=== PATIENT | female | born 1965 ===

== ENCOUNTER 2023-06-08 11:52 | Emergency (ER) | payer MEDICARE, SELFPAY ==
[2023-06-08] VITALS (15 sets, daily range): BP systolic 146–201; BP diastolic 68–97; PULSE 62–88; RESP 15–22; TEMP 36.7; O2SAT 94–99; BMI 42.0
--- NOTE | 2023-06-08 12:02 | DI.RAD.S_ITS ---
PROCEDURE: XR KNEE LT 1TO2V INDICATIONS: knee pain, fall, radiates up leg. TECHNIQUE: 2 views of the knee were acquired. COMPARISON: None. FINDINGS: Bones: Knee arthroplasty has been performed. There is a comminuted moderately displaced and angulated fracture of the distal femur extending to the distal femoral arthroplasty hardware. Soft tissues: No joint effusion. No suspicious soft tissue calcifications. IMPRESSION: Periprosthetic distal femoral fracture. Dictated by: Octavia Farris M.D. on 06/08/2023 at 12:50 Approved by: Octavia Farris M.D. on 06/08/2023 at 12:51
--- NOTE | 2023-06-08 12:02 | DI.RAD.S_ITS ---
PROCEDURE: XR HIP W PEL IF DONE LT 2V INDICATIONS: knee pain, fall, radiates up leg. TECHNIQUE: AP pelvis with lateral view(s) of the left hip(s). COMPARISON: None. FINDINGS: Bones: No fractures or dislocations. Pelvic ring appears intact. No suspicious bony lesions. Lumbosacral fusion hardware. Soft tissues: The visualized bowel gas pattern is normal. No suspicious soft tissue calcifications. IMPRESSION: No acute fracture. No osseous lesion. If symptoms and/or clinical suspicion for pathology persist, further assessment with repeat, or advanced imaging (e.g., CT, MRI, or bone scan) may be helpful for further assessment. Dictated by: Octavia Farris M.D. on 06/08/2023 at 12:50 Approved by: Octavia Farris M.D. on 06/08/2023 at 12:50
--- NOTE | 2023-06-08 12:19 | PC.NURSE ---
Provider notified of patient condition and current pain rate and elevated blood pressure. Provider gave verbal order for 4mg of morphine IV.
[2023-06-08] MEDS: MORPHINE 4 MG/ML INJ IV ×6 (12:27→21:41)
--- NOTE | 2023-06-08 12:56 | ED.LOWEXIN ---
HPI - Extremity Injury (Lower) <Aline Gregory DO - Last Filed: 06/10/23 07:32> General Chief Complaint: Extremity Injury, Lower Stated Complaint: trip and fall. 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 Patient was at an estate sale today tripped and fell directly onto her left knee and has significant pain with swelling. No numbness or tingling. She can flex and point her foot. She states pain all seems to be localized there. She denies other injuries. States she did not hit her head no headache no neck pain, no chest pain or shortness of breath. No nausea or vomiting, no other GI or urinary symptoms. She denies any numbness or tingling down her leg. She states any sort of movement is very painful. She received fentanyl EN route with EMS which was moderately helpful, she received additional dose of morphine here which when she is still she states manages her pain. She was hypertensive upon arrival, she did take her losartan today. Patient states she got bad headaches with codeine but no other known drug allergies. She states her tetanus has been updated in the last year. Has had prior abdominal surgeries but denies any cardiac surgeries. Related Data Home Medications Medication Instructions Recorded Confirmed gabapentin 100 mg tablet 100 mg PO TID 06/09/23 06/09/23 losartan 100 mg tablet 100 mg PO DAILY 06/09/23 06/09/23 omeprazole 20 mg capsule,delayed 20 mg PO DAILY 06/09/23 06/09/23 release trazodone 100 mg tablet 100 mg PO BEDTIME 06/09/23 06/09/23 venlafaxine 75 mg tablet 75 mg PO TID 06/09/23 06/09/23 Allergies Allergy/AdvReac Type Severity Reaction Status Date / Time codeine AdvReac Headache Verified 06/09/23 03:34 Patient History <Aline Gregory DO - Last Filed: 06/10/23 07:32> Medical History (Updated 06/09/23 @ 10:37 by Bing Ball RN) High cholesterol Hypertension Social History Smoking Status: Never smoker Smoking Status: Never smoker alcohol intake frequency: a few times a week Substance Use Type: does not use Exam <Aline Gregory DO - Last Filed: 06/10/23 07:32> Initial Vital Signs Initial Vital Signs: Vital Signs Temperature 98.1 F 06/08/23 12:04 Pulse Rate 63 06/08/23 12:04 Respiratory Rate 16 06/08/23 12:04 Blood Pressure 201/97 H 06/08/23 12:04 Pulse Oximetry 99 06/08/23 12:04 Oxygen Delivery Method Room Air 06/08/23 12:04 <Fredis Walsh DO - Last Filed: 06/09/23 22:55> Initial Vital Signs Initial Vital Signs: Vital Signs Temperature 98.1 F 06/08/23 12:04 Pulse Rate 63 06/08/23 12:04 Respiratory Rate 16 06/08/23 12:04 Blood Pressure 201/97 H 06/08/23 12:04 Pulse Oximetry 99 06/08/23 12:04 Oxygen Delivery Method Room Air 06/08/23 12:04 <Darian Daly MD - Last Filed: 06/22/23 08:24> Initial Vital Signs Initial Vital Signs: Vital Signs Temperature 98.1 F 06/08/23 12:04 Pulse Rate 63 06/08/23 12:04 Respiratory Rate 16 06/08/23 12:04 Blood Pressure 201/97 H 06/08/23 12:04 Pulse Oximetry 99 06/08/23 12:04 Oxygen Delivery Method Room Air 06/08/23 12:04 Course <Aline Gregory DO - Last Filed: 06/10/23 07:32> Orders Ordered: Discontinued Medications Gabapentin (Gabapentin 100 Mg Capsule) 100 mg PO TID [facility] Last Admin: 06/09/23 15:55 Dose: 100 mg Documented By: LUIS FELIPE Admin: 06/09/23 09:39 Dose: 100 mg Documented By: Admin: 06/08/23 23:13 Dose: 100 mg Documented By: BEATRIZ Sodium Chloride (Normal Saline 0.9%) 1,000 mls @ 125 mls/hr IV CONT [facility] Last Admin: 06/09/23 11:02 Dose: 125 mls/hr Documented By: Infusion: 06/09/23 11:01 Dose: 0 mls/hr Documented By: Admin: 06/09/23 02:05 Dose: 125 mls/hr Documented By: Infusion: 06/09/23 02:05 Dose: 125 mls/hr Documented By: Admin: 06/08/23 18:20 Dose: 125 mls/hr Documented By: MIAH Losartan Potassium (Losartan 50 Mg Tablet) 100 mg PO NOW [facility] Losartan Potassium (Losartan 50 Mg Tablet) 100 mg PO NOW ONE Stop: 06/09/23 09:01 Last Admin: 06/09/23 09:38 Dose: 100 mg Documented By: ARLENE Morphine Sulfate (Morphine 4 Mg/Ml Inj) 4 mg IV NOW ONE Stop: 06/08/23 12:21 Last Admin: 06/08/23 12:27 Dose: 4 mg Documented By: RB Morphine Sulfate (Morphine 4 Mg/Ml Inj) 4 mg IV NOW ONE Stop: 06/08/23 14:42 Last Admin: 06/08/23 14:54 Dose: 4 mg Documented By: RB Morphine Sulfate (Morphine 4 Mg/Ml Inj) 4 mg IV Q2HR PRN PRN Reason: pain Last Admin: 06/09/23 14:50 Dose: 4 mg Documented By: Admin: 06/09/23 12:44 Dose: 4 mg Documented By: Admin: 06/09/23 11:02 Dose: 4 mg Documented By: Admin: 06/09/23 08:40 Dose: 4 mg Documented By: Admin: 06/09/23 06:08 Dose: 4 mg Documented By: Admin: 06/09/23 03:57 Dose: 4 mg Documented By: Admin: 06/09/23 01:28 Dose: 4 mg Documented By: Admin: 06/08/23 21:41 Dose: 4 mg Documented By: Admin: 06/08/23 19:37 Dose: 4 mg Documented By: Admin: 06/08/23 17:24 Dose: 4 mg Documented By: Admin: 06/08/23 15:48 Dose: 4 mg Documented By: MIAH Morphine Sulfate (Morphine 4 Mg/Ml Inj) 4 mg IM NOW ONE Stop: 06/09/23 15:56 Last Admin: 06/09/23 16:09 Dose: 4 mg Documented By: ARLENE Naloxone HCl (Naloxone 0.4 Mg/Ml Vial) 0.2 mg IV Q2MIN PRN PRN Reason: Opiate Reversal Trazodone HCl (Trazodone 50 Mg Tablet) 100 mg PO BEDTIME [facility] Last Admin: 06/08/23 23:12 Dose: 100 mg Documented By: BEATRIZ Venlafaxine HCl (Venlafaxine 37.5 Mg Tablet) 75 mg PO TID [facility] Last Admin: 06/09/23 15:55 Dose: 75 mg Documented By: LUIS FELIPE Admin: 06/09/23 09:38 Dose: 75 mg Documented By: Admin: 06/08/23 23:12 Dose: 75 mg Documented By: BEATRIZ Vital Signs Vital signs: Vital Signs - 8 hr 06/09/23 10:25 Pulse Rate 73 Respiratory Rate 18 Blood Pressure 155/70 H Pulse Oximetry 94 Oxygen Delivery Method Room Air <Fredis Walsh DO - Last Filed: 06/09/23 22:55> Orders Ordered: Discontinued Medications Gabapentin (Gabapentin 100 Mg Capsule) 100 mg PO TID [facility] Last Admin: 06/09/23 15:55 Dose: 100 mg Documented By: LUIS FELIPE Admin: 06/09/23 09:39 Dose: 100 mg Documented By: Admin: 06/08/23 23:13 Dose: 100 mg Documented By: BEATRIZ Sodium Chloride (Normal Saline 0.9%) 1,000 mls @ 125 mls/hr IV CONT [facility] Last Admin: 06/09/23 11:02 Dose: 125 mls/hr Documented By: Infusion: 06/09/23 11:01 Dose: 0 mls/hr Documented By: Admin: 06/09/23 02:05 Dose: 125 mls/hr Documented By: Infusion: 06/09/23 02:05 Dose: 125 mls/hr Documented By: Admin: 06/08/23 18:20 Dose: 125 mls/hr Documented By: MIAH Losartan Potassium (Losartan 50 Mg Tablet) 100 mg PO NOW [facility] Losartan Potassium (Losartan 50 Mg Tablet) 100 mg PO NOW ONE Stop: 06/09/23 09:01 Last Admin: 06/09/23 09:38 Dose: 100 mg Documented By: ARLENE Morphine Sulfate (Morphine 4 Mg/Ml Inj) 4 mg IV NOW ONE Stop: 06/08/23 12:21 Last Admin: 06/08/23 12:27 Dose: 4 mg Documented By: JESUS Morphine Sulfate (Morphine 4 Mg/Ml Inj) 4 mg IV NOW ONE Stop: 06/08/23 14:42 Last Admin: 06/08/23 14:54 Dose: 4 mg Documented By: RB Morphine Sulfate (Morphine 4 Mg/Ml Inj) 4 mg IV Q2HR PRN PRN Reason: pain Last Admin: 06/09/23 14:50 Dose: 4 mg Documented By: Admin: 06/09/23 12:44 Dose: 4 mg Documented By: Admin: 06/09/23 11:02 Dose: 4 mg Documented By: Admin: 06/09/23 08:40 Dose: 4 mg Documented By: Admin: 06/09/23 06:08 Dose: 4 mg Documented By: Admin: 06/09/23 03:57 Dose: 4 mg Documented By: Admin: 06/09/23 01:28 Dose: 4 mg Documented By: Admin: 06/08/23 21:41 Dose: 4 mg Documented By: Admin: 06/08/23 19:37 Dose: 4 mg Documented By: Admin: 06/08/23 17:24 Dose: 4 mg Documented By: Admin: 06/08/23 15:48 Dose: 4 mg Documented By: MIAH Morphine Sulfate (Morphine 4 Mg/Ml Inj) 4 mg IM NOW ONE Stop: 06/09/23 15:56 Last Admin: 06/09/23 16:09 Dose: 4 mg Documented By: ARLENE Naloxone HCl (Naloxone 0.4 Mg/Ml Vial) 0.2 mg IV Q2MIN PRN PRN Reason: Opiate Reversal Trazodone HCl (Trazodone 50 Mg Tablet) 100 mg PO BEDTIME [facility] Last Admin: 06/08/23 23:12 Dose: 100 mg Documented By: BEATRIZ Venlafaxine HCl (Venlafaxine 37.5 Mg Tablet) 75 mg PO TID [facility] Last Admin: 06/09/23 15:55 Dose: 75 mg Documented By: Admin: 06/09/23 09:38 Dose: 75 mg Documented By: Admin: 06/08/23 23:12 Dose: 75 mg Documented By: BEATRIZ Vital Signs Vital signs: Vital Signs - 8 hr 06/09/23 10:25 Pulse Rate 73 Respiratory Rate 18 Blood Pressure 155/70 H Pulse Oximetry 94 Oxygen Delivery Method Room Air <Darian Daly MD - Last Filed: 06/22/23 08:24> Orders Ordered: Discontinued Medications Gabapentin (Gabapentin 100 Mg Capsule) 100 mg PO TID [facility] Last Admin: 06/09/23 15:55 Dose: 100 mg Documented By: LUIS FELIPE Admin: 06/09/23 09:39 Dose: 100 mg Documented By: Admin: 06/08/23 23:13 Dose: 100 mg Documented By: BEATRIZ Sodium Chloride (Normal Saline 0.9%) 1,000 mls @ 125 mls/hr IV CONT [facility] Last Admin: 06/09/23 11:02 Dose: 125 mls/hr Documented By: Infusion: 06/09/23 11:01 Dose: 0 mls/hr Documented By: Admin: 06/09/23 02:05 Dose: 125 mls/hr Documented By: Infusion: 06/09/23 02:05 Dose: 125 mls/hr Documented By: Admin: 06/08/23 18:20 Dose: 125 mls/hr Documented By: MIAH Losartan Potassium (Losartan 50 Mg Tablet) 100 mg PO NOW [place] Losartan Potassium (Losartan 50 Mg Tablet) 100 mg PO NOW ONE Stop: 06/09/23 09:01 Last Admin: 06/09/23 09:38 Dose: 100 mg Documented By: ARLENE Morphine Sulfate (Morphine 4 Mg/Ml Inj) 4 mg IV NOW ONE Stop: 06/08/23 12:21 Last Admin: 06/08/23 12:27 Dose: 4 mg Documented By: RB Morphine Sulfate (Morphine 4 Mg/Ml Inj) 4 mg IV NOW ONE Stop: 06/08/23 14:42 Last Admin: 06/08/23 14:54 Dose: 4 mg Documented By: RB Morphine Sulfate (Morphine 4 Mg/Ml Inj) 4 mg IV Q2HR PRN PRN Reason: pain Last Admin: 06/09/23 14:50 Dose: 4 mg Documented By: Admin: 06/09/23 12:44 Dose: 4 mg Documented By: Admin: 06/09/23 11:02 Dose: 4 mg Documented By: Admin: 06/09/23 08:40 Dose: 4 mg Documented By: Admin: 06/09/23 06:08 Dose: 4 mg Documented By: Admin: 06/09/23 03:57 Dose: 4 mg Documented By: Admin: 06/09/23 01:28 Dose: 4 mg Documented By: Admin: 06/08/23 21:41 Dose: 4 mg Documented By: Admin: 06/08/23 19:37 Dose: 4 mg Documented By: Admin: 06/08/23 17:24 Dose: 4 mg Documented By: Admin: 06/08/23 15:48 Dose: 4 mg Documented By: MIAH Morphine Sulfate (Morphine 4 Mg/Ml Inj) 4 mg IM NOW ONE Stop: 06/09/23 15:56 Last Admin: 06/09/23 16:09 Dose: 4 mg Documented By: ARLENE Naloxone HCl (Naloxone 0.4 Mg/Ml Vial) 0.2 mg IV Q2MIN PRN PRN Reason: Opiate Reversal Trazodone HCl (Trazodone 50 Mg Tablet) 100 mg PO BEDTIME [facility] Last Admin: 06/08/23 23:12 Dose: 100 mg Documented By: BEATRIZ Venlafaxine HCl (Venlafaxine 37.5 Mg Tablet) 75 mg PO TID [facility] Last Admin: 06/09/23 15:55 Dose: 75 mg Documented By: LUIS FELIPE Admin: 06/09/23 09:38 Dose: 75 mg Documented By: Admin: 06/08/23 23:12 Dose: 75 mg Documented By: BEATRIZ Vital Signs Vital signs: Vital Signs - 8 hr 06/09/23 10:25 Pulse Rate 73 Respiratory Rate 18 Blood Pressure 155/70 H Pulse Oximetry 94 Oxygen Delivery Method Room Air MDM - Extremity Injury (Lower) <Aline Gregory, DO - Last Filed: 06/10/23 07:32> Lab Data 06/08/23 13:55 06/08/23 13:55 Labs: Lab Results 06/08/23 06/08/23 06/08/23 Range/Units 13:45 13:55 13:55 WBC 11.3 H (4.5-11.0) X10^3/uL RBC 4.30 (4.0-5.2) X10^6/uL Hgb 10.4 L (12.0-16.0) g/dL Hct 31.4 L (36-46) % MCV 73.0 L (80-100) fL MCH 24.1 L (26-34) PG MCHC 33.0 (30-36) % RDW 17.7 H (11.6-14.8) % Plt Count 302 (150-400) X10^3/uL Neut % (Auto) 89.3 H (50-75) % Lymph % (Auto) 7.7 L (25-40) % [place] % (Auto) 2.5 L (3-14) % Eos % (Auto) 0.3 L (2-4) % Baso % (Auto) 0.2 (0-2) % Neut # (Auto) 97644 H (3216-1621) /uL Lymph # (Auto) 900 L (9643-8493) /uL [place] # (Auto) 300 (0-900) /uL Eos # (Auto) 0 (0-450) /uL Baso # (Auto) 0 (0-100) /uL PT 14.4 H (10.1-12.7) SECONDS INR 1.3 (0.9-1.3) APTT 27 (26-36) SECONDS Sodium (137-145) mmol/L Potassium (3.4-5.1) mmol/L Chloride (98-107) mmol/L Carbon Dioxide (22-32) mmol/L BUN (7-17) mg/dL Creatinine (0.52-1.04) mg/dL Estimated GFR (>60) mL/min BUN/Creatinine Ratio (6-22) Glucose (70-100) mg/dL Calcium (8.4-10.2) mg/dL Total Bilirubin (0.2-1.3) mg/dL AST (14-36) IU/L ALT (<35) IU/L Alkaline Phosphatase (38-126) U/L Total Protein (6.3-8.2) g/dL Albumin (3.5-5.0) g/dL Globulin (1.7-4.1) g/dL Albumin/Globulin Ratio (1.0-2.8) SARS-CoV-2 (PCR) Negative (Negative) 06/08/23 Range/Units 13:55 WBC (4.5-11.0) X10^3/uL RBC (4.0-5.2) X10^6/uL Hgb (12.0-16.0) g/dL Hct (36-46) % MCV (80-100) fL MCH (26-34) PG MCHC (30-36) % RDW (11.6-14.8) % Plt Count (150-400) X10^3/uL Neut % (Auto) (50-75) % Lymph % (Auto) (25-40) % [place] % (Auto) (3-14) % Eos % (Auto) (2-4) % Baso % (Auto) (0-2) % Neut # (Auto) (2946-7214) /uL Lymph # (Auto) (5024-3047) /uL [place] # (Auto) (0-900) /uL Eos # (Auto) (0-450) /uL Baso # (Auto) (0-100) /uL PT (10.1-12.7) SECONDS INR (0.9-1.3) APTT (26-36) SECONDS Sodium 138 (137-145) mmol/L Potassium 3.9 (3.4-5.1) mmol/L Chloride 104 (98-107) mmol/L Carbon Dioxide 27 (22-32) mmol/L BUN 10 (7-17) mg/dL Creatinine 0.56 (0.52-1.04) mg/dL Estimated GFR > 60 (>60) mL/min BUN/Creatinine Ratio 17.9 (6-22) Glucose 168 H (70-100) mg/dL Calcium 8.3 L (8.4-10.2) mg/dL Total Bilirubin 0.4 (0.2-1.3) mg/dL AST 28 (14-36) IU/L ALT 23 (<35) IU/L Alkaline Phosphatase 137 H (38-126) U/L Total Protein 7.1 (6.3-8.2) g/dL Albumin 3.9 (3.5-5.0) g/dL Globulin 3.2 (1.7-4.1) g/dL Albumin/Globulin Ratio 1.2 (1.0-2.8) SARS-CoV-2 (PCR) (Negative) Imaging Data CT LE : Radiologist's Impression: [address] [address] [address] Scan Report Signed Patient: Felecia Gonzales MR#: [id number] : 1965 Acct:[id number] Age/Sex: 57 / F Date of Service: 06/08/23 Loc: ED Accession Number: [id number] ?? Procedure: CT LE LT wo con Ordering Provider: Aline Gregory D.O. PROCEDURE:? CT LE LT W CON ? INDICATIONS:? left fx, periprosthetic ? TECHNIQUE:? Noncontrast 1-1.5 mm axial sections acquired from the mid-patella to the proximal tibia, with coronal and sagittal reformats.? ? COMPARISON:? [facility], CR, XR KNEE LT 1TO2V, 06/08/2023, 12:14. ? FINDINGS:? Image quality:? Degraded by metallic artifact. ? Bones:? Knee arthroplasty has been performed.? As before, there is a moderately displaced and comminuted fracture of the distal femur adjacent to the knee arthroplasty hardware. ? Soft tissues:? No fluid collections. ? ? IMPRESSION:? Periprosthetic distal femoral fracture. ? Dictated by: Octavia Farris M.D. on 06/08/2023 at 16:42 ? ? Approved by: Octavia Farris M.D. on 06/08/2023 at 16:44?? MDM Narrative Medical decision making narrative: 57-year-old female who presents with complaint of fall with significant knee pain does radiate a little bit towards the hip. Hip x-ray is negative knee x-ray shows periprosthetic joint with fracture just above comminuted somewhat angulated. Patient is neurovascularly intact. Discussed with Orthopedic surgery is outside their scope here locally so they do recommend transfer. Patient denies any other injury states she went directly onto her knee. She is not anticoagulated. Spoke with Dr. Edison Allison. Orthopedic surgery did review patient's imaging. They asked for CT lower extremity without contrast for surgical planning this will help delineate which facility patient goes to and asked her images to be push once that is accomplished. They do plan for patient to transfer just need additional information for planning. Awaiting callback from orthopedic surgery. They have had technical issues uploading films. Films confirmed uploaded at [facility]. Orthopedics recontactaed, awaiting final back. Signed out to Dr. Walsh while awaiting final callback. Patient has been NVI. PRN morphine for pain control. <Fredis Walsh, DO - Last Filed: 06/09/23 22:55> Lab Data Labs: Lab Results 06/08/23 06/08/23 06/08/23 Range/Units 13:45 13:55 13:55 WBC 11.3 H (4.5-11.0) X10^3/uL RBC 4.30 (4.0-5.2) X10^6/uL Hgb 10.4 L (12.0-16.0) g/dL Hct 31.4 L (36-46) % MCV 73.0 L (80-100) fL MCH 24.1 L (26-34) PG MCHC 33.0 (30-36) % RDW 17.7 H (11.6-14.8) % Plt Count 302 (150-400) X10^3/uL Neut % (Auto) 89.3 H (50-75) % Lymph % (Auto) 7.7 L (25-40) % [place] % (Auto) 2.5 L (3-14) % Eos % (Auto) 0.3 L (2-4) % Baso % (Auto) 0.2 (0-2) % Neut # (Auto) 09575 H (6188-6005) /uL Lymph # (Auto) 900 L (1867-5720) /uL [place] # (Auto) 300 (0-900) /uL Eos # (Auto) 0 (0-450) /uL Baso # (Auto) 0 (0-100) /uL PT 14.4 H (10.1-12.7) SECONDS INR 1.3 (0.9-1.3) APTT 27 (26-36) SECONDS Sodium (137-145) mmol/L Potassium (3.4-5.1) mmol/L Chloride (98-107) mmol/L Carbon Dioxide (22-32) mmol/L BUN (7-17) mg/dL Creatinine (0.52-1.04) mg/dL Estimated GFR (>60) mL/min BUN/Creatinine Ratio (6-22) Glucose (70-100) mg/dL Calcium (8.4-10.2) mg/dL Total Bilirubin (0.2-1.3) mg/dL AST (14-36) IU/L ALT (<35) IU/L Alkaline Phosphatase (38-126) U/L Total Protein (6.3-8.2) g/dL Albumin (3.5-5.0) g/dL Globulin (1.7-4.1) g/dL Albumin/Globulin Ratio (1.0-2.8) SARS-CoV-2 (PCR) Negative (Negative) 06/08/23 Range/Units 13:55 WBC (4.5-11.0) X10^3/uL RBC (4.0-5.2) X10^6/uL Hgb (12.0-16.0) g/dL Hct (36-46) % MCV (80-100) fL MCH (26-34) PG MCHC (30-36) % RDW (11.6-14.8) % Plt Count (150-400) X10^3/uL Neut % (Auto) (50-75) % Lymph % (Auto) (25-40) % [place] % (Auto) (3-14) % Eos % (Auto) (2-4) % Baso % (Auto) (0-2) % Neut # (Auto) (4526-6436) /uL Lymph # (Auto) (6667-3349) /uL [place] # (Auto) (0-900) /uL Eos # (Auto) (0-450) /uL Baso # (Auto) (0-100) /uL PT (10.1-12.7) SECONDS INR (0.9-1.3) APTT (26-36) SECONDS Sodium 138 (137-145) mmol/L Potassium 3.9 (3.4-5.1) mmol/L Chloride 104 (98-107) mmol/L Carbon Dioxide 27 (22-32) mmol/L BUN 10 (7-17) mg/dL Creatinine 0.56 (0.52-1.04) mg/dL Estimated GFR > 60 (>60) mL/min BUN/Creatinine Ratio 17.9 (6-22) Glucose 168 H (70-100) mg/dL Calcium 8.3 L (8.4-10.2) mg/dL Total Bilirubin 0.4 (0.2-1.3) mg/dL AST 28 (14-36) IU/L ALT 23 (<35) IU/L Alkaline Phosphatase 137 H (38-126) U/L Total Protein 7.1 (6.3-8.2) g/dL Albumin 3.9 (3.5-5.0) g/dL Globulin 3.2 (1.7-4.1) g/dL Albumin/Globulin Ratio 1.2 (1.0-2.8) SARS-CoV-2 (PCR) (Negative) MDM Narrative Medical decision making narrative: 57-year-old female who presents with complaint of fall with significant knee pain does radiate a little bit towards the hip. Hip x-ray is negative knee x-ray shows periprosthetic joint with fracture just above comminuted somewhat angulated. Patient is neurovascularly intact. Discussed with Orthopedic surgery is outside their scope here locally so they do recommend transfer. Patient denies any other injury states she went directly onto her knee. She is not anticoagulated. Spoke with [facility], Dr. Hogan. Orthopedic surgery did review patient's imaging. They asked for CT lower extremity without contrast for surgical planning this will help delineate which facility patient goes to and asked her images to be push once that is accomplished. They do plan for patient to transfer just need additional information for planning. Awaiting callback from orthopedic surgery. They have had technical issues uploading films. Films confirmed uploaded at [facility]. Orthopedics recontactaed, awaiting final back. Signed out to Dr. Walsh while awaiting final callback. Patient has been NVI. PRN morphine for pain control. Dr walsh: Received turned over. Review patient's history and physical and workup up to this point. I did discuss the case with Dr. King on-call for Orthopedic surgery at [facility]. He did review the CT scan. He stated that this patient would be best off treated with the prosthetic orthopedic surgery group at the [facility] not by the Trauma group at [facility]. The transfer center was working on getting in touch with the appropriate group at the [facility]. I received a call back stating that this group not be available until after 0700 hours tomorrow morning. We attempted to contact other facilities that could potentially help the patient however there is no bed availability. Patient will stay in the emergency department this evening. She has pain medication ordered as needed. Plan will be is to Re contact transfer center in the morning with anticipation of transfer. Care turned over to day provider changes shift to continue with this process. <Darian Daly MD - Last Filed: 06/22/23 08:24> Lab Data Labs: Lab Results 06/08/23 06/08/23 06/08/23 Range/Units 13:45 13:55 13:55 WBC 11.3 H (4.5-11.0) X10^3/uL RBC 4.30 (4.0-5.2) X10^6/uL Hgb 10.4 L (12.0-16.0) g/dL Hct 31.4 L (36-46) % MCV 73.0 L (80-100) fL MCH 24.1 L (26-34) PG MCHC 33.0 (30-36) % RDW 17.7 H (11.6-14.8) % Plt Count 302 (150-400) X10^3/uL Neut % (Auto) 89.3 H (50-75) % Lymph % (Auto) 7.7 L (25-40) % [place] % (Auto) 2.5 L (3-14) % Eos % (Auto) 0.3 L (2-4) % Baso % (Auto) 0.2 (0-2) % Neut # (Auto) 05726 H (8657-9764) /uL Lymph # (Auto) 900 L (2252-4400) /uL [place] # (Auto) 300 (0-900) /uL Eos # (Auto) 0 (0-450) /uL Baso # (Auto) 0 (0-100) /uL PT 14.4 H (10.1-12.7) SECONDS INR 1.3 (0.9-1.3) APTT 27 (26-36) SECONDS Sodium (137-145) mmol/L Potassium (3.4-5.1) mmol/L Chloride (98-107) mmol/L Carbon Dioxide (22-32) mmol/L BUN (7-17) mg/dL Creatinine (0.52-1.04) mg/dL Estimated GFR (>60) mL/min BUN/Creatinine Ratio (6-22) Glucose (70-100) mg/dL Calcium (8.4-10.2) mg/dL Total Bilirubin (0.2-1.3) mg/dL AST (14-36) IU/L ALT (<35) IU/L Alkaline Phosphatase (38-126) U/L Total Protein (6.3-8.2) g/dL Albumin (3.5-5.0) g/dL Globulin (1.7-4.1) g/dL Albumin/Globulin Ratio (1.0-2.8) SARS-CoV-2 (PCR) Negative (Negative) 06/08/23 Range/Units 13:55 WBC (4.5-11.0) X10^3/uL RBC (4.0-5.2) X10^6/uL Hgb (12.0-16.0) g/dL Hct (36-46) % MCV (80-100) fL MCH (26-34) PG MCHC (30-36) % RDW (11.6-14.8) % Plt Count (150-400) X10^3/uL Neut % (Auto) (50-75) % Lymph % (Auto) (25-40) % [place] % (Auto) (3-14) % Eos % (Auto) (2-4) % Baso % (Auto) (0-2) % Neut # (Auto) (5724-4206) /uL Lymph # (Auto) (6688-5910) /uL [place] # (Auto) (0-900) /uL Eos # (Auto) (0-450) /uL Baso # (Auto) (0-100) /uL PT (10.1-12.7) SECONDS INR (0.9-1.3) APTT (26-36) SECONDS Sodium 138 (137-145) mmol/L Potassium 3.9 (3.4-5.1) mmol/L Chloride 104 (98-107) mmol/L Carbon Dioxide 27 (22-32) mmol/L BUN 10 (7-17) mg/dL Creatinine 0.56 (0.52-1.04) mg/dL Estimated GFR > 60 (>60) mL/min BUN/Creatinine Ratio 17.9 (6-22) Glucose 168 H (70-100) mg/dL Calcium 8.3 L (8.4-10.2) mg/dL Total Bilirubin 0.4 (0.2-1.3) mg/dL AST 28 (14-36) IU/L ALT 23 (<35) IU/L Alkaline Phosphatase 137 H (38-126) U/L Total Protein 7.1 (6.3-8.2) g/dL Albumin 3.9 (3.5-5.0) g/dL Globulin 3.2 (1.7-4.1) g/dL Albumin/Globulin Ratio 1.2 (1.0-2.8) SARS-CoV-2 (PCR) (Negative) MDM Narrative Medical decision making narrative: 57-year-old female who presents with complaint of fall with significant knee pain does radiate a little bit towards the hip. Hip x-ray is negative knee x-ray shows periprosthetic joint with fracture just above comminuted somewhat angulated. Patient is neurovascularly intact. Discussed with Orthopedic surgery is outside their scope here locally so they do recommend transfer. Patient denies any other injury states she went directly onto her knee. She is not anticoagulated. Spoke with [facility], Dr. Hogan. Orthopedic surgery did review patient's imaging. They asked for CT lower extremity without contrast for surgical planning this will help delineate which facility patient goes to and asked her images to be push once that is accomplished. They do plan for patient to transfer just need additional information for planning. Awaiting callback from orthopedic surgery. They have had technical issues uploading films. Films confirmed uploaded at [facility] [place]. Orthopedics recontactaed, awaiting final back. Signed out to Dr. aWlsh while awaiting final callback. Patient has been NVI. PRN morphine for pain control. Dr walsh: Received turned over. Review patient's history and physical and workup up to this point. I did discuss the case with Dr. King on-call for Orthopedic surgery at [facility]. He did review the CT scan. He stated that this patient would be best off treated with the prosthetic orthopedic surgery group at the [facility] not by the Trauma group at [facility]. The transfer center was working on getting in touch with the appropriate group at the [facility]. I received a call back stating that this group not be available until after 0700 hours tomorrow morning. We attempted to contact other facilities that could potentially help the patient however there is no bed availability. Patient will stay in the emergency department this evening. She has pain medication ordered as needed. Plan will be is to Re contact transfer center in the morning with anticipation of transfer. Care turned over to day provider changes shift to continue with this process. Dr. Daly: June 09, 2023 at 7:00 a.m. Sign-out from Dr. Walsh, awaiting call back from [facility] for specialty orthopedics with prosthesis provider to review patient's needs and for transfer. 10:37 a.m. spoke with [facility], , dr sommer, he will call back again, he needs to review with the specialty surgeons regarding this case and if available this weekend 11:14 a.m.. Spoke with orthopedics again [facility], he will accept patient. Awaiting for bed assignment now. Keep patient NPO 1:00 p.m.. Spoke with [facility] Dr. Parish, he will accept patient. They are awaiting for bed available Discharge Plan Departure Patient Disposition: [facility] Clinical Impression: Periprosthetic fracture around internal prosthetic joint, Femoral fracture Prescriptions: No Action venlafaxine 75 mg Tablet 75 mg PO TID trazodone [Desyrel] 100 mg Tablet 100 mg PO BEDTIME gabapentin 100 mg Tablet 100 mg PO TID omeprazole [Prilosec] 20 mg Capsule,Delayed Release(Dr/Ec) 20 mg PO DAILY losartan 100 mg Tablet 100 mg PO DAILY
[2023-06-08 14:11] LABS: Add Manual Diff / Slide Review NO; Basophils Absolute Auto 0 /uL (0-100); Basophils Percent Auto 0.2 % (0-2); Eosinophils Absolute Auto 0 /uL (0-450); Eosinophils Percent Auto 0.3 % (2-4); Hematocrit 31.4 % (36-46); Hemoglobin 10.4 g/dL (12.0-16.0); Lymphocytes Absolute Auto 900 /uL (1100-4500); Lymphocytes Percent Auto 7.7 % (25-40); Mean Corpuscular Hemoglobin 24.1 PG (26-34); Monocytes Absolute Auto 300 /uL (0-900); Monocytes Percent Auto 2.5 % (3-14); Neutrophils Absolute Auto 10100 /uL (1500-7000); Neutrophils Percent Auto 89.3 % (50-75); Platelet Count 302 X10^3/uL (150-400); Red Cell Distribution Width 17.7 % (11.6-14.8); White Blood Cell Count 11.3 X10^3/uL (4.5-11.0)
[2023-06-08 14:17] LABS: INR 1.3 (0.9-1.3); Prothrombin Time 14.4 SECONDS (10.1-12.7)
[2023-06-08 14:20] LABS: PTT Partial Thromboplastin Tim 27 SECONDS (26-36)
[2023-06-08 14:23] LABS: Alanine Aminotransferase 23 IU/L (<35); Albumin 3.9 g/dL (3.5-5.0); Albumin Globulin Ratio 1.2 (1.0-2.8); Alkaline Phosphatase 137 U/L (38-126); Aspartate Aminotransferase 28 IU/L (14-36); BUN Creatinine Ratio 17.9 (6-22); Bilirubin Total 0.4 mg/dL (0.2-1.3); Blood Urea Nitrogen 10 mg/dL (7-17); Calcium 8.3 mg/dL (8.4-10.2); Carbon Dioxide 27 mmol/L (22-32); Chloride 104 mmol/L (98-107); Estimated Glomerular Filt Rate > 60 mL/min (>60); Globulin 3.2 g/dL (1.7-4.1); Glucose 168 mg/dL (70-100); HEMOLYSIS < 15 (0-50); Potassium 3.9 mmol/L (3.4-5.1); Sodium 138 mmol/L (137-145); Total Protein 7.1 g/dL (6.3-8.2)
[2023-06-08 14:44] LABS: COVID19 -Nasal RAPID Negative (Negative)
--- NOTE | 2023-06-08 15:22 | DI.CT.S_ITS ---
PROCEDURE: CT LE LT W CON INDICATIONS: left fx, periprosthetic TECHNIQUE: Noncontrast 1-1.5 mm axial sections acquired from the mid-patella to the proximal tibia, with coronal and sagittal reformats. COMPARISON: [facility], CR, XR KNEE LT 1TO2V, 06/08/2023, 12:14. FINDINGS: Image quality: Degraded by metallic artifact. Bones: Knee arthroplasty has been performed. As before, there is a moderately displaced and comminuted fracture of the distal femur adjacent to the knee arthroplasty hardware. Soft tissues: No fluid collections. IMPRESSION: Periprosthetic distal femoral fracture. Dictated by: Octavia Farris M.D. on 06/08/2023 at 16:42 Approved by: Octavia Farris M.D. on 06/08/2023 at 16:44
--- NOTE | 2023-06-08 16:55 | PC.NURSE ---
PHLEBOTOMY DIRECTOR Note: Called [facility] to check in on pt's transfer status. CT has been pushed successfully but transfer center needs to call radiology to get CT into the pt's chart. Will follow up shortly.
[2023-06-08] MEDS: SODIUM CHLORIDE 0.9% 1,000 ML 125 ML IV (18:20)
[2023-06-08] MEDS: TRAZODONE 50 MG TABLET 100 MG PO (23:12)
[2023-06-08] MEDS: VENLAFAXINE 37.5 MG TABLET 75 MG PO (23:12)
[2023-06-08] MEDS: GABAPENTIN 100 MG CAPSULE PO (23:13)
[2023-06-09] VITALS (11 sets, daily range): BP systolic 132–175; BP diastolic 58–77; PULSE 71–80; RESP 16–18; O2SAT 92–96; BMI 42.0
[2023-06-09] MEDS: MORPHINE 4 MG/ML INJ IV ×7 (01:28→14:50)
[2023-06-09] MEDS: SODIUM CHLORIDE 0.9% 1,000 ML 125 ML IV ×2 (02:05→11:02)
--- NOTE | 2023-06-09 05:32 | PC.NURSE ---
SCD machine applied only on right leg. LLE injured, pt declines having on left leg.
--- NOTE | 2023-06-09 08:17 | PC.NURSE ---
Addendum entered by Portia Simpson CNA 06/09/23 08:30: This pt's transfer was turned over to the day [facility] [place]. The night [facility] [place], Urvashi Sampson, told me during report that she called out to other facilities to get the pt on their waiting lists, but all facilities she reached out to had no beds available. This REEL TENDER called out to transfer center around 0745 and inquired about what has halted the transfer process. Per xfer staff combat information center officer, there was a big miscommunication yesterday on having the pt's CT scan pushed appropriately into their medical charts on 's end, which impeded the xfer process. Currently, the xfer medical receptionist assistant Nathalie said there was no assigned doctor nor any progress from last nights calls at the moment. Original Note: REEL TENDER Note: Pt transfer process turned over to day shift [facility] [place]. Called and was told that they will call out to Dr. Alaniz, the on-call day orthopedic general surgeon to have a discussion with Dr. Daly. If no answer by 929, this REEL TENDER will recontact and put them on the [facility] list.
--- NOTE | 2023-06-09 08:45 | PC.NURSE ---
Attempted to call [facility], no answer. Will continue to call every couple of minutes.
--- NOTE | 2023-06-09 09:11 | CM.MNRNOTE ---
Pt placed on [facility]'s radar and will follow up throughout the day.
--- NOTE | 2023-06-09 09:29 | PC.NURSE ---
Pt now placed on [facility]'s radar and will follow up throughout the day.
[2023-06-09] MEDS: VENLAFAXINE 37.5 MG TABLET 75 MG PO ×2 (09:38→15:55)
[2023-06-09] MEDS: LOSARTAN 50 MG TABLET 100 MG PO (09:38)
[2023-06-09] MEDS: GABAPENTIN 100 MG CAPSULE PO ×2 (09:39→15:55)
--- NOTE | 2023-06-09 09:45 | PC.NURSE ---
patient requesting water and clothes to give herself a bedbath. patient given requested items and call light left in place.
--- NOTE | 2023-06-09 11:17 | PC.NURSE ---
pt moved onto inpatient hospital bed with use of hover mat.
--- NOTE | 2023-06-09 12:35 | PC.NURSE ---
REIMBURSEMENT REP Note: This REIMBURSEMENT REP started looking for facilities to start the transfer process of this pt and got the following responses: - [address]: Orthopedic doc DR. Bhatti rejected pt to transfer. - [address] [facility] talked to Tyler at [facility]: Pt on their waitlist. Facesheet, doc note, labs, and images have been faxed and pushed. - [address] spoke with Pascual SALGADO at [facility]: both [facility] and [facility] campuses are boarding and are not accepting any waitlist at the time. - [address] spoke with Eliazar at transfer center: Pt put on their waitlist. Facesheet and images have been pushed. - 12[address] [facility] spoke with Dale at [facility]: No available beds and not accepting waitlist. - [address] spoke with Pili the [facility] recpetionist and Oscar the mixing house operator: currently at capacity and not accepting any transfers. Pt is still accepted at by Dr. Alaniz, however no bed available today 06/09. Will follow up in the afternoon on bed status.
[2023-06-09] MEDS: MORPHINE 4 MG/ML INJ IM (16:09)
== END 2023-06-09 16:20 | disposition short-term general hospital (02) ==
PROVIDERS: Emergency Medicine; Emergency Provider Emergency Medicine
DX: S82.002A Unspecified fracture of left patella, initial encounter for closed fracture (principal); M97.12XA Periprosthetic fracture around internal prosthetic left knee joint, initial encounter; S72.402A Unspecified fracture of lower end of left femur, initial encounter for closed fracture; M97.02XA Periprosthetic fracture around internal prosthetic left hip joint, initial encounter; W18.30XA Fall on same level, unspecified, initial encounter; Z20.822 Contact with and (suspected) exposure to COVID-19
CPT/HCPCS: 73502; 73560; 73700; 80053; 85025; 85610; 85730; 87635; 96361; 96372; 96374; 96376; 99284; 99285; C9803; J2270